=== PATIENT | male | born 1960 | race Caucasian/White ===

== ENCOUNTER 2018-04-25 06:58 | Day surgery (SDC) | payer MEDICAID ==
[~2018-04-25] VITALS: Ht 166.4 cm; Wt 68.0 kg
[2018-04-25] MEDS ORDERED: ONDANSETRON HCL 4MG/2ML VIAL IV PRN (08:45)
[2018-04-25] MEDS ORDERED: FENTANYL CITRATE/PF 50MCG/ML 2ML VIAL IV PRN (08:45)
[2018-04-25] MEDS ORDERED: LACTATED RINGERS 1,000 ML IV SCH (09:00)
[2018-04-25] MEDS ORDERED: LACT10SO30 PO (10:04)
[2018-04-25] MEDS ORDERED: TRAM50TA3 PO (10:04)
[2018-04-25] MEDS ORDERED: OMEP20CA10 PO (10:04)
[2018-04-25] MEDS ORDERED: ALBU18HF2 IH (10:04)
[2018-04-25] MEDS ORDERED: LORA10TA7 PO (10:04)
[2018-04-25] MEDS ORDERED: SIMETHICONE 40 MG/0.6 ML 30ML ONE (10:47)
[2018-04-25] MEDS ORDERED: PROPOFOL 200MG/20ML VIAL IV ONE ×2 (11:42→13:49)
[2018-04-25] MEDS ORDERED: LIDOCAINE HCL/PF 1% 10 MG/ML 5ML VIAL ONE (11:42)
[2018-04-25 14:34] VITALS: BP 135/84
== END 2018-04-25 16:45 | disposition home or self-care (01) ==
LOC: OR 06:58
PROVIDERS: ATTEND Internal Medicine Gastroenterology
DX: I85.00 Esophageal varices without bleeding (principal); K29.50 Unspecified chronic gastritis without bleeding; K74.69 Other cirrhosis of liver; K76.6 Portal hypertension; B18.2 Chronic viral hepatitis C; I10 Essential (primary) hypertension; F32.9 Major depressive disorder, single episode, unspecified; K21.0 Gastro-esophageal reflux disease with esophagitis; F41.9 Anxiety disorder, unspecified; Z98.890 Other specified postprocedural states; Z79.899 Other long term (current) drug therapy
CPT/HCPCS: 43239; 43244; 88305; J2405; J3010; J3490; J7030; J7120; J2704